=== PATIENT | female | born 1965 | race Caucasian/White ===

== ENCOUNTER 2019-09-11 16:51 | Emergency (ER) | payer MEDICAID ==
[~2019-09-11] VITALS: Ht 157.5 cm; Wt 59.0 kg
[2019-09-11] MEDS ORDERED: OLANZAPINE 10 MG/VIAL IM ONE ×2 (17:15→18:45)
[2019-09-11] MEDS ORDERED: LORAZEPAM 2MG/ML CPJ IM ONE ×2 (17:15→18:45)
[2019-09-11 17:36] LABS: EOSINOPHILS % 0.7 % (0.0-5.0); HEMATOCRIT. 35.3 % (36.0-48.0); HEMOGLOBIN. 12.4 g/dL (12.0-16.0); LYMPHOCYTES % 33.2 % (20.0-50.0); MEAN CORPUSCULAR VOLUME 93.7 fL (81.0-99.0); MEAN PLATELET VOLUME 6.8 fl (7.4-10.4); MONOCYTES % 8.5 % (2.0-8.0); NEUTROPHILS % 56.6 % (40.0-76.0); PLATELET 349 x1000/uL (130-400); RED BLOOD CELL COUNT 3.77 mill/uL (4.2-5.4); RED CELL DISTRIBUTION WIDTH 12.9 % (11.6-14.6)
[2019-09-11 17:38] LABS: CLARITY URINE CLOUDY (CLEAR); COLOR URINE YELLOW (YELLOW); KETONES URINE TRACE (NEGATIVE); LEUKOCYTE ESTERASE URINE 2+ (NEGATIVE); NITRITE URINE POSITIVE (NEGATIVE); OCCULT BLOOD URINE NEGATIVE (NEGATIVE); PH URINE 6.5 (4.5-8.0); PROTEIN URINE NEGATIVE (NEGATIVE); SPECIFIC GRAVITY URINE 1.011 (1.005-1.030)
[2019-09-11 17:40] LABS: CHLORIDE 93 mEq/L (98-107)
[2019-09-11 17:43] LABS: ETHANOL BLOOD < 10 mg/dL
[2019-09-11 17:51] LABS: *AMPHETAMINES SCREEN URINE NEGATIVE (NEGATIVE); *BARBITURATES SCREEN URINE NEGATIVE (NEGATIVE); *BENZODIAZEPINES SCREEN URINE NEGATIVE (NEGATIVE)
[2019-09-11 17:52] LABS: *COCAINE SCREEN URINE NEGATIVE (NEGATIVE); CANNABINOID URINE SCREEN NEGATIVE (NEGATIVE); METHADONE URINE SCREEN NEGATIVE (NEGATIVE); OPIATES URINE SCREEN NEGATIVE (NEGATIVE); PHENCYCLIDINE URINE SCREEN NEGATIVE (NEGATIVE)
[2019-09-11] MEDS ORDERED: POTASSIUM CHLORIDE 20MEQ TABLET SR PO ONE (18:15)
[2019-09-11] MEDS ORDERED: LEVOFLOXACIN 500MG TABLET PO ONE (18:15)
[2019-09-12] MEDS: LEVOFLOXACIN 500MG TABLET PO SCH (12:18)
[2019-09-12] MEDS ORDERED: BUSPIRONE HCL 5MG TABLET PO SCH (20:00)
[2019-09-13] MEDS: LEVOFLOXACIN 500MG TABLET PO SCH (12:00)
[2019-09-14] MEDS ORDERED: LEVOFLOXACIN 500MG TABLET PO ONE (11:15)
[2019-09-14] MEDS: LEVOFLOXACIN 500MG TABLET PO SCH (11:30)
[2019-09-14] MEDS: BUSPIRONE HCL 5MG TABLET PO SCH (16:16)
[2019-09-15] MEDS: BUSPIRONE HCL 5MG TABLET PO SCH ×3 (10:30→17:53)
[2019-09-15] MEDS ORDERED: LORAZEPAM 1MG TABLET PO ONE (11:30)
[2019-09-15] MEDS ORDERED: BUSPIRONE HCL 5MG TABLET PO ONE (11:30)
[2019-09-15] MEDS ORDERED: LEVOFLOXACIN 500MG TABLET PO SCH (14:00)
[2019-09-16] MEDS: BUSPIRONE HCL 5MG TABLET PO SCH ×3 (12:47→17:33)
[2019-09-17] MEDS: BUSPIRONE HCL 5MG TABLET PO SCH ×3 (09:33→16:55)
[2019-09-17] MEDS ORDERED: LORAZEPAM 1MG TABLET PO ONE (18:00)
[2019-09-18 11:30] VITALS: BP 104/72
== END 2019-09-18 12:08 | disposition home or self-care (01) ==
LOC: ER 16:51
DX: F23 Brief psychotic disorder (principal); N39.0 Urinary tract infection, site not specified; F41.9 Anxiety disorder, unspecified; F32.9 Major depressive disorder, single episode, unspecified; F19.10 Other psychoactive substance abuse, uncomplicated; R41.82 Altered mental status, unspecified
CPT/HCPCS: 36415; 80053; 80305; 80307; 80320; 80329; 81003; 85025; 96372; 99285; J2060; J3490; G0480